=== PATIENT | male | born 1975 | race Caucasian/White ===

== ENCOUNTER 2021-03-14 11:11 | Emergency (ER) | payer SELFPAY ==
[~2021-03-14] VITALS: Ht 167.6 cm; Wt 99.3 kg
[2021-03-14 11:18] VITALS: BP 154/81
--- NOTE | 2021-03-14 11:25 | NUR ---
Patient to bed 10. RN evaluating the patient at bedside.
--- NOTE | 2021-03-14 11:37 | NUR ---
45/M presents to ED with c/o of left lower abdominal pain and suprapubic pain x2 days. Patient states the pain occurred while at rest and has been consistent since, area is tender to touch, states the pain feels sharp and burning and rates it a 8/10. Patient states he feels the pain worsening when he holds in his urine but denies dysuria, hematuria. Patient denies nausea/vomiting/diarrhea. States he took Tylenol last night with minimal relief.
--- NOTE | 2021-03-14 11:44 | NUR ---
1138-- UA DIP TEST PREFORMED PER NURSE REQUEST BY MARLENY PINEDA
[2021-03-14] MEDS ORDERED: KETOROLAC 30 MG/ML VIAL IM ONE (12:05)
--- NOTE | 2021-03-14 12:13 | NUR ---
Patient taken to CT via wheel chair
--- NOTE | 2021-03-14 12:19 | NUR ---
Sathya returned from CT scan.
--- NOTE | 2021-03-14 12:19 | NUR ---
Pt returned from CT and placed back in bed 10.
--- NOTE | 2021-03-14 12:23 | NUR ---
Lab at bedside
[2021-03-14 12:33] LABS: BASOPHILS % (AUTO) 0.3 % (0.0-2.0); EOSINOPHILS # (AUTO) 0.1 K/uL (0-0.4); MEAN CORPUSCULAR VOLUME 82.7 fL (80-94); MONOCYTES # (AUTO) 1.2 K/uL (0.8-1.0); NEUTROPHILS # (AUTO) 9.7 K/uL (1.8-7.7); WHITE BLOOD COUNT (AUTO) 12.7 K/uL (4.8-10.8)
[2021-03-14 12:34] LABS: APPEARANCE,URINE CLEAR (CLEAR); BILIRUBIN,URINE NEGATIVE (NEGATIVE); BLOOD, URINE TRACE-L (NEGATIVE); COLOR,URINE YELLOW (YELLOW); LEUKOCYTE ESTERASE ,URINE NEGATIVE (NEGATIVE); NITRITE, URINE NEGATIVE (NEGATIVE); UGLUCOSE NEGATIVE (NEGATIVE)
[2021-03-14 12:38] LABS: EOSINOPHILS % (AUTO) 0.8 % (0.0-4.0); HEMATOCRIT 45.9 % (36-52); HEMOGLOBIN 15.4 g/dL (12.0-18.0); LYMPHOCYTES # (AUTO) 1.6 K/uL (2.0-11.5); LYMPHOCYTES % (AUTO) 12.6 % (20.5-51.1); MEAN CORPUSCULAR HEMOGLOBIN 28 pg (27-31); MEAN CORPUSCULAR HGB CONC 34 g/dL (33-37); MONOCYTES % (AUTO) 9.8 % (1.7-9.3); NEUTROPHILS % (AUTO) 76.5 % (42.2-75.2); PLATELET COUNT (AUTO) 216 K/uL (140-450); RED BLOOD CELL COUNT(AUTO) 5.55 MIL/uL (4.20-6.10); RED CELL DISTRIBUTION WIDTH 14.1 % (11.6-13.7)
[2021-03-14 12:42] LABS: RBC,URINE NONE SEEN /HPF (0-5); WBC,URINE 0-5 /HPF (0-5)
[2021-03-14 12:46] LABS: ALBUMIN 3.8 g/dL (3.4-5.0); ANION GAP 12.8 (8-16); CREATININE 0.9 mg/dL (0.6-1.3); POTASSIUM 3.8 mmol/L (3.5-5.1); TOTAL BILIRUBIN 1.1 mg/dL (0.0-1.0)
[2021-03-14] MEDS ORDERED: CIPR500T4 PO (12:54)
[2021-03-14] MEDS ORDERED: METR500T1 PO (12:54)
--- NOTE | 2021-03-14 13:03 | NUR ---
Patient discharged with v/s stable. Written and verbal after care instructions given and explained. Patient alert, oriented and verbalized understanding of instructions. Ambulatory with steady gait. All questions addressed prior to discharge. ID band removed. Patient advised to follow up with PMD. Rx of Ciprofloxacin, Metronidazole given. Patient educated on indication of medication including possible reaction and side effects. Opportunity to ask questions provided and answered.
[2021-03-14 13:06] VITALS: BP 154/81
== END 2021-03-14 13:03 | disposition home or self-care (01) ==
LOC: MED 11:11
DX: K57.00 Diverticulitis of small intestine with perforation and abscess without bleeding (principal); Z79.899 Other long term (current) drug therapy
CPT/HCPCS: 36415; 74176; 80053; 81001; 83690; 85025; 96372; 99284; J1885